=== PATIENT | male | born 1945 | race Caucasian/White ===

== ENCOUNTER 2021-01-22 15:15 | Emergency (ER) | payer BC, OTHER ==
[~2021-01-22 15:15] MED LIST: BENADRYL 25MG C25 MG PO; CARAFATE1 GM PO; MUCINEX600 MG PO; MULTIVITAMINS1 EAC1 PO; PROTONIX40 MG PO
[2021-01-22 16:47] LABS: HEMOGLOBIN 7.8 gm/dl (14.0-17.5); RED BLOOD COUNT 3.81 M/UL (4.20-5.50); WHITE BLOOD COUNT 12.6 K/UL (4.5-11.0)
[2021-01-22 17:03] LABS: BUN/CREATININE RATIO 11 (0-10)
== END 2021-01-23 00:25 | disposition short-term general hospital (02) ==
LOC: ER1 15:15
PROVIDERS: Student in an Organized Health Care Education/Training Program
DX: I12.9 Hypertensive chronic kidney disease with stage 1 through stage 4 chronic kidney disease, or unspecified chronic kidney disease (principal); N18.9 Chronic kidney disease, unspecified; J44.9 Chronic obstructive pulmonary disease, unspecified; R53.1 Weakness; R09.02 Hypoxemia; F17.210 Nicotine dependence, cigarettes, uncomplicated; Z79.899 Other long term (current) drug therapy; Z20.822 Contact with and (suspected) exposure to COVID-19
CPT/HCPCS: 0240U; 36600; 70450; 71045; 80053; 81001; 82550; 82553; 82803; 83874; 83880; 84484; 85025; 85379; 93005; 99285; Q9967